=== PATIENT | female | born 1940 | race Two or more races ===

== ENCOUNTER 2025-10-08 17:13 | Emergency (ER) | payer MEDICAID, OTHER ==
[~2025-10-08] VITALS: Ht 167.6 cm; Wt 113.5 kg
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
[2025-10-08 18:48] LABS: Hematocrit 36.4 % (36.0-46.0); Hemoglobin 12.1 g/dL (12.2-16.2); Mean Corpuscular Hemoglobin 31.2 pg (28.0-32.0); Mean Corpuscular Volume 93.8 fL (80.0-100.0); Nucleated Red Blood Cells % 0.0 %
[2025-10-08 19:06] LABS: Alanine Aminotransferase 12 U/L (7-40); Albumin 3.7 g/dL (3.2-4.8); Alkaline Phosphatase 73 U/L (46-116); Anion Gap 13 (5-15); BUN/Creatinine Ratio 10.7 (10.0-20.0); Bilirubin, Total 0.5 mg/dL (0.2-1.0); Blood Urea Nitrogen 13 mg/dL (9-23); Calcium 9.5 mg/dL (8.7-10.4); Carbon Dioxide 22 mmol/L (20-31); Chloride 103 mmol/L (98-107); Creatine Kinase IFCC 40 U/L (34-145); Potassium 4.0 mmol/L (3.5-5.1); Sodium 138 mmol/L (136-145); Total Protein 7.2 g/dL (5.7-8.2)
[2025-10-08 19:09] LABS: Glucose 303 mg/dL (74-106)
[2025-10-08 19:22] LABS: Lactic Acid w/Reflex 2.6 mmol/L (0.4-2.0)
[2025-10-08] MEDS: SODIUM CHLORIDE 0.9% 1,000 ML IV ONE (20:29)
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
[2025-10-09 00:39] VITALS: BP 118/62; PULSE 82; RESP 16; TEMP 97.7; O2SAT 95
== END 2025-10-09 01:00 | disposition home or self-care (01) ==
LOC: ER 17:13 → EDBD 17:13 → ER 10-09 01:00
DX: S09.8XXA Other specified injuries of head, initial encounter (principal); R10.84 Generalized abdominal pain; E78.5 Hyperlipidemia, unspecified; E11.9 Type 2 diabetes mellitus without complications; E86.0 Dehydration; F03.90 Unspecified dementia, unspecified severity, without behavioral disturbance, psychotic disturbance, mood disturbance, and anxiety; Z90.49 Acquired absence of other specified parts of digestive tract; X58.XXXA Exposure to other specified factors, initial encounter; Y93.89 Activity, other specified; Y92.89 Other specified places as the place of occurrence of the external cause; Y09 Assault by unspecified means
CPT/HCPCS: 36415; 70450; 72125; 74176; 80053; 82550; 83605; 84484; 85025; 96360; 99284; J7030